=== PATIENT | female | born 1950 | race Caucasian/White ===

== ENCOUNTER 2023-11-03 11:58 | Emergency (ER) | payer MEDICAID ==
[~2023-11-03] VITALS: Ht 172.7 cm; Wt 82.0 kg
[2023-11-03 12:02] VITALS: O2SAT 6
[2023-11-03] MEDS ORDERED: GABA-532 MT (13:02)
[2023-11-03 14:58] VITALS: BP 128/87; PULSE 85; RESP 18; TEMP 36.83628; O2SAT 99
== END 2023-11-03 15:01 | disposition home or self-care (01) ==
LOC: ER 12:41
DX: E11.40 Type 2 diabetes mellitus with diabetic neuropathy, unspecified (principal); R20.2 Paresthesia of skin; I10 Essential (primary) hypertension; Z88.0 Allergy status to penicillin; Z88.6 Allergy status to analgesic agent; Z98.890 Other specified postprocedural states
CPT/HCPCS: 99283